=== PATIENT | male | born 1975 | race Caucasian/White ===

== ENCOUNTER 2017-07-16 08:07 | Emergency (ER) | payer OTHER ==
[~2017-07-16] VITALS: Ht 175.3 cm; Wt 88.6 kg
[2017-07-16 08:10] VITALS: BP 142/91
[2017-07-16] MEDS ORDERED: IBUPROFEN 800 MG TABLET PO ONE (09:15)
== END 2017-07-16 09:46 | disposition home or self-care (01) ==
LOC: EMS 08:09
DX: H66.92 Otitis media, unspecified, left ear (principal); H61.22 Impacted cerumen, left ear; R03.0 Elevated blood-pressure reading, without diagnosis of hypertension
CPT/HCPCS: 99283